=== PATIENT | male | born 1970 | race Caucasian/White ===

== ENCOUNTER 2019-02-24 19:35 | Emergency (ER) | payer BC, OTHER ==
[2019-02-24 19:55] VITALS: BP 103/67
[2019-02-24] MEDS ORDERED: Ibuprofen TAB* 600 MG PO ONE (20:02)
--- NOTE | 2019-02-24 21:33 | UC ---
Lower Extremity/Ankle HPI - HPI Summary HPI Summary: 48-year-old male comes in with a chief complaint of right lower leg pain. Just prior to arrival he was playing basketball and another player fell and struck his right calf with their knee. He felt a pop and had extreme pain. Unable to bear weight. Here in clinic he he's had some ibuprofen had ice on it and the pain has decreased. Did have some numbness down the back of the leg into the heel. He is able to plantarflex and dorsiflex his ankle however that does increase the pain in the calf. No problems with range of motion of the knee. No skin break. - History of Current Complaint Chief Complaint: UCLowerExtremity Stated Complaint: RIGHT CALF INJURY Time Seen by Provider: 02/24/19 21:23 Pain Intensity: 6 - Allergies/Home Medications Allergies/Adverse Reactions: Allergies Allergy/AdvReac Type Severity Reaction Status Date / Time No Known Allergies Allergy Verified 02/24/19 19:53 Home Medications: Home Medications NK [No Home Medications Reported] 02/24/19 [History Confirmed 02/24/19] PMH/Surg Hx/FS Hx/Imm Hx Previously Healthy: Yes - Surgical History Surgical History: Yes Surgery Procedure, Year, and Place: right arm - Family History Known Family History: Positive: Non-Contributory - Social History Alcohol Use: Weekly Substance Use Type: None Smoking Status (MU): Never Smoked Tobacco Review of Systems All Other Systems Reviewed And Are Negative: Yes Constitutional: Positive: Negative Skin: Positive: Negative Eyes: Positive: Negative ENT: Positive: Negative Respiratory: Positive: Negative Cardiovascular: Positive: Negative Gastrointestinal: Positive: Negative Motor: Positive: Other - SEE HPI Neurovascular: Positive: Negative Musculoskeletal: Positive: Other: - SEE HPI Neurological: Positive: Negative Psychological: Positive: Negative Is Patient Immunocompromised?: No Physical Exam Triage Information Reviewed: Yes Appearance: Well-Appearing, Well-Nourished, Pain Distress - MILD WITH ROM Vital Signs: Initial Vital Signs Temp 98.7 F 02/24/19 19:49 Pulse 86 02/24/19 19:49 Resp 16 02/24/19 19:49 BP 103/67 02/24/19 19:49 Pulse Ox 100 02/24/19 19:49 Vital Signs Reviewed: Yes Eye Exam: Normal Eyes: Positive: Conjunctiva Clear Neck: Positive: Supple Respiratory: Positive: No respiratory distress Musculoskeletal: Positive: Other: - The right lower leg the right calf is tender to palpation. The ankle has full range of motion. Achilles tendon is nontender to palpation is intact. Normal dorsalis pedis pulses normal capillary refill and normal sensation distally. There is some tenderness in the lateral aspect of the leg over the fibula. Anterior leg is nontender. Knees full range of motion. Neurological: Positive: Alert Psychological: Positive: Age Appropriate Behavior Skin Exam: Normal Lower Extremity Course/Dx - Course Course Of Treatment: I reviewed the x-rays with the patient. I do not see any fracture radiologist reading is pending. No evidence of compartment syndrome at this time. Patient was Conrado wrapped by nursing and clinic patient requests were intact after placement of the Conrado wrap. Is also given crutches. And ice it elevated and rest it. If not improved follow-up with sports medicine. - Differential Dx/Diagnosis Provider Diagnosis: Contusion of right calf Discharge - Sign-Out/Discharge Documenting (check all that apply): Patient Departure All imaging exams completed and their final reports reviewed: No - Discharge Plan Condition: Stable Disposition: HOME Patient Education Materials: Contusion in Adults (ED), Compartment Syndrome (DC ), Crutch Instructions (ED) Referrals: Daily Godwin MD [Primary Care Provider] - Additional Instructions: FOLLOW UP WITH SPORTS MEDICINE IF NOT COMPLETELY IMPROVED. GET RECHECKED SOONER IF YOUR CONDITION WORSENS; PAIN, COMPARTMENT SYNDROME SYMPTOMS OR ANY QUESTIONS OR CONCERNS. - Billing Disposition and Condition Condition: STABLE Disposition: Home
--- NOTE | 2019-02-25 08:40 | UC ---
- Progress Note Progress Note: wet read correct Course/Dx - Diagnoses Provider Diagnoses: Contusion of right calf Discharge - Sign-Out/Discharge Documenting (check all that apply): Post-Discharge Follow Up All imaging exams completed and their final reports reviewed: Yes - Discharge Plan Condition: Stable Disposition: HOME Patient Education Materials: Crutch Instructions (ED), Compartment Syndrome (DC ), Contusion in Adults (ED) Referrals: Daily Godwin MD [Primary Care Provider] - Additional Instructions: FOLLOW UP WITH SPORTS MEDICINE IF NOT COMPLETELY IMPROVED. GET RECHECKED SOONER IF YOUR CONDITION WORSENS; PAIN, COMPARTMENT SYNDROME SYMPTOMS OR ANY QUESTIONS OR CONCERNS. - Billing Disposition and Condition Condition: STABLE Disposition: Home
== END 2019-02-24 22:40 | disposition home or self-care (01) ==
LOC: UCEAST 19:35
DX: S80.11XA Contusion of right lower leg, initial encounter (principal); W50.0XXA Accidental hit or strike by another person, initial encounter; Y93.67 Activity, basketball; Y92.9 Unspecified place or not applicable
CPT/HCPCS: 99212; A9270-GY; G0463

== ENCOUNTER 2019-12-11 12:47 | Emergency (ER) | payer BC, OTHER ==
[2019-12-11 13:37] VITALS: BP 121/74
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
[2019-12-11 18:20] LABS: ABS Basophils 0.1 10^3/ul (0-0.2); ABS Eosinophils 0.2 10^3/ul (0-0.6); ABS Lymphocytes 1.6 10^3/ul (1.0-4.8); ABS Monocytes 0.8 10^3/ul (0-0.8); ABS Neutrophils 5.2 10^3/ul (1.5-7.7); Eosinophil % 2.6 %; Hematocrit 39 % (42-52); Hemoglobin 13.6 g/dL (14.0-18.0); Lymphocyte % 20.8 %; Mean Corpuscular HGB Conc 35 g/dL (31-36); Mean Corpuscular Hemoglobin 30 pg (27-31); Mean Corpuscular Volume 87 fL (80-94); Mean Platelet Volume 9.1 fL (7.4-10.4); Nucleated Red Blood Cells % 0.1; Platelet Count 231 10^3/uL (150-450); Red Blood Count 4.51 10^6 /uL (4.18-5.48); Red Cell Distribution Width 13 % (10-15); White Blood Count 7.8 10^3/uL (3.5-10.8)
== END 2019-12-11 16:00 | disposition home or self-care (01) ==
LOC: UCEAST 12:47
DX: L03.114 Cellulitis of left upper limb (principal)
CPT/HCPCS: 36415; 85025; 86140; 99212; G0463